=== PATIENT | male | born 1950 | race Caucasian/White ===

== ENCOUNTER 2021-11-09 15:15 | Emergency (ER) | payer OTHER ==
[~2021-11-09 15:15] MED LIST: ASPIRIN81 MG PO; COUMADIN5 MG PO; GLUCOTROL5 MG PO; LISINOPRIL10 MG PO; LOVENOX100 MG/1 M SC; NORVASC 5MG TABL5 MG PO
[2021-11-09 16:31] LABS: BASOPHIL 0.3 % (0-2); EOSINOPHIL 0.1 % (0-7); HGB 14.1 g/dl (13.2-18.0); LYMPHOCYTE 8.1 % (15-48); MCH 30.3 pg (25.0-31.0); MCHC 32.8 g/dL (32.0-36.0); MCV 92.3 fL (78.0-100.0); MONOCYTE 3.1 % (0-12); MPV 9.1 fL (6.0-9.5); NEUTROPHIL 87.9 % (41-80); NRBC 0; PLT 182 K/uL (150-400); RBC 4.66 M/uL (4.70-6.00); RDW 13.2 % (11.5-14.0); WBC 15.1 K/uL (4.0-10.5)
[2021-11-09 17:04] LABS: ALBUMIN 4.2 g/dL (3.4-5.0); BILIRUBIN - TOTAL 0.4 mg/dL (0.2-1.0); BUN/CREAT RATIO (CALC) 12.8 RATIO; CREATININE 2.27 mg/dL (0.67-1.17); GLOBULIN (CALCULATION) 4.1 g/dL; POTASSIUM 4.7 mmol/L (3.5-5.1); TOTAL PROTEIN 8.3 g/dL (6.4-8.2)
[2021-11-09 17:11] LABS: INR 1.81 (0.9-1.2); PROTHROMBIN TIME 20.2 SECONDS (11.8-13.4)
[2021-11-09 20:01] LABS: BILIRUBIN NEGATIVE (NEGATIVE); BLOOD 1+ Ery/uL (NEGATIVE); CLARITY CLEAR (CLEAR); COLOR YELLOW (YELLOW); GLUCOSE (U) NORMAL (NORMAL); LEUKOCYTES NEGATIVE Leu/uL (NEGATIVE); NITRITE NEGATIVE (NEGATIVE); PROTEIN TRACE (LOW) mg/dL (NEGATIVE); UROBILINOGEN 0.2 mg/dL (0.2-1.0)
[2021-11-09 20:11] LABS: BACTERIA TRACE
== END 2021-11-09 20:40 | disposition other institution (70) ==
LOC: FER 15:15
PROVIDERS: Emergency Medicine
DX: N28.1 Cyst of kidney, acquired (principal); N17.9 Acute kidney failure, unspecified; N13.2 Hydronephrosis with renal and ureteral calculous obstruction; E11.9 Type 2 diabetes mellitus without complications
CPT/HCPCS: 36415; 80053; 81001; 84145; 85025; 85610; J1170; J2405; J7030